=== PATIENT | female | born 1955 ===

== ENCOUNTER 2017-12-07 07:50 | Inpatient (IN) | payer BC ==
[2017-12-07 07:51] VITALS: BMI 24.2
[2017-12-07] MEDS ORDERED: Sodium Chloride 0.9% 1,000 ML IV ONE ×2 (08:16→11:07)
[2017-12-07] MEDS ORDERED: Albuterol-Ipratrop 3 mg / 0.5 (3 ml) UD IH STA (08:18)
[2017-12-07] MEDS ORDERED: Piperacill/Tazo 4.5gm in Dex 4.5 GM/100 ML BAG IVPB STA (08:34)
--- NOTE | 2017-12-07 08:34 | C.PDOC ---
History Of Present Illness 62 y/o female, with PMHx of asthma, and HTN, presents to ED for evaluation of cold symptoms including nasal congestion, productive cough, and clear sputum for the past week. Pt states she developed chest tightness and wheezing last night, notes she was not able to sleep last night. Denies high fever, headache, dizziness, chest pain, palpitation, shortness of breath, abdominal pain, or n/v/d. Pt also reports gradual development of right lower leg pain, redness, and swelling over the past 2 weeks. Denies fall, trauma, sensory vascular deficit, weakness, or numbness. Time Seen by Provider: 12/07/17 08:05 Chief Complaint (Nursing): Lower Extremity Problem/Injury History Per: Patient History/Exam Limitations: no limitations Onset/Duration Of Symptoms: Days Current Symptoms Are (Timing): Still Present Recent travel outside of the [place]: No Additional History Per: Patient Past Medical History Reviewed: Historical Data, Nursing Documentation, Vital Signs Vital Signs: Last Vital Signs Temp 98 F 12/07/17 07:59 Pulse 76 12/07/17 07:59 Resp 18 12/07/17 07:59 BP 119/80 12/07/17 07:59 Pulse Ox 92 L 12/07/17 07:59 - Medical History PMH: Asthma, Bronchitis (chronic), COPD, HTN, Pneumonia Denies: Chronic Kidney Disease Surgical History: Family History: States: Unknown Family Hx - Social History Hx Tobacco Use: No Hx Alcohol Use: No Hx Substance Use: No - Immunization History Hx Tetanus Toxoid Vaccination: No Hx Influenza Vaccination: No Hx Pneumococcal Vaccination: No Review Of Systems Except As Marked, All Systems Reviewed And Found Negative. Constitutional: Negative for: Fever, Chills ENT: Positive for: Nose Congestion. Negative for: Ear Pain, Throat Pain Cardiovascular: Positive for: Chest Pain (tightness). Negative for: Palpitations, Light Headedness Respiratory: Positive for: Cough, Sputum, Wheezing Gastrointestinal: Negative for: Nausea, Vomiting, Abdominal Pain Genitourinary: Negative for: Dysuria, Frequency Musculoskeletal: Positive for: Leg Pain (right lower leg). Negative for: Neck Pain, Back Pain Neurological: Negative for: Weakness, Numbness, Headache, Dizziness Physical Exam - Physical Exam Appears: Non-toxic, Other (occasiobal productive cough) Skin: Warm, Dry, No Rash, Other (erythema, mild edema and warmth to right distal fibular region with surround erythema, no fluctuance or proximal streaking) Head: Normacephalic Eye(s): bilateral: PERRL Ear(s): Bilateral: Normal Nose: No Flaring, No Discharge Oral Mucosa: Moist, No Drooling Tongue: Normal Appearing Lips: Normal Appearing Throat: No Erythema, No Exudate Neck: Trachea Midline, Supple Chest: Symmetrical Cardiovascular: Rhythm Regular, No Murmur, No JVD, Other ((-) carotid bruits B/L) Respiratory: Decreased Breath Sounds, Accessory Muscle Use (abd), No Rales, No Rhonchi, Wheezing (diffuse expiratory B/L) Gastrointestinal/Abdominal: Soft, No Tenderness, No Distention, No Guarding Back: No CVA Tenderness Extremity: Normal ROM, Tenderness (right distal fibula), Calf Tenderness (Right), Capillary Refill (less than 2 seconds), No Deformity, Swelling (mild swelling to right distal fibula extend to Right ankle) Pulses: Left Dorsalis Pedis: Normal, Right Dorsalis Pedis: Normal Neurological/Psych: Oriented x3, Normal Speech, Normal Motor, Normal Sensation, Normal Reflexes ED Course And Treatment - Laboratory Results Result Diagrams: 12/07/17 08:45 12/07/17 08:45 Lab Interpretation: No Changes Compared To Prior Results ECG: Interpreted By Me, Viewed By Me Interpretation Of ECG: SR@70/min, NAD, no acute ST-T changes. O2 Sat by Pulse Oximetry: 92 Pulse Ox Interpretation: Abnormal - Radiology CXR: Interpreted by Me, Viewed By Me CXR Interpretation: Yes: Other (perivsacular congestion B/L, ? pneumomediastinum) - CT Scan/US Doppler US RLE Other Rad Studies (CT/US): Radiology Report Reviewed CT/US Interpretation: (-) DVT prelim report Progress Note: Blood work, UA, CXR, EKG, influenza AB, Doppler right lower extremity ordered and reviewed. Pt was given Solu-Medrol, Zosyn, IV fluids, and nebulizer treatment. Pt was OBS in ED for 2 hours and reports mild improvement. PulsOEx 92-93%RA. ENT: no acute findings. neck: Supple, (-) JVD, (-) carotid bruits. Lungs: scattered expiratory bibasilar wheezing. Abd: benign. Neuorlogicaly intact. Blood work review and appears without acute abnormalities. EKG- no acute changes compare to previous study. CXR - abnormal, CT chest ordered. Case discussed with Hospitalist and amdisison arranged to tele with Dx: Asthma exacerbation, hypoxia, Right lower leg cellulitis. Critical Care Time - Critical Care Note Total Time (in mins): 45 Documented critical care: time excludes all time spent performing seperately billable procedures. Disposition - Disposition Disposition: HOSPITALIZED Disposition Time: 10:01 Condition: STABLE - Clinical Impression Clinical Impression: Asthma exacerbation, Cellulitis, Hypoxia - PA / [employer] / Resident Statement MD/DO has reviewed & agrees with the documentation as recorded. - Scribe Statement The provider has reviewed the documentation as recorded by the Scribe KP All medical record entries made by the Scribe were at my direction and personally dictated by me. I have reviewed the chart and agree that the record accurately reflects my personal performance of the history, physical exam, medical decision making, and the department course for this patient. I have also personally directed, reviewed, and agree with the discharge instructions and disposition.
[2017-12-07] MEDS ORDERED: Albuterol-Ipratrop 3 mg / 0.5 (3 ml) UD ONE ×3 (08:43→11:46)
[2017-12-07] MEDS ORDERED: Sodium Chloride 0.9% 1,000 ML ONE ×2 (08:48→12:54)
[2017-12-07 08:55] LABS: BASO # 0.1 K/uL (0.0-0.2); EOS # 1.1 K/uL (0.0-0.7); EOS % 15.5 % (0.0-4.0); HEMOGLOBIN 14.5 g/dL (11.0-16.0); LYMPH # 2.2 K/uL (1.0-4.3); LYMPH % 31.8 % (20.0-40.0); MEAN CELL VOLUME 88.1 fL (81.0-99.0); MEAN CORPUSCULAR HEMOGLOBIN 31.6 pg (27.0-31.0); MEAN CORPUSCULAR HGB CONC 35.8 g/dL (33.0-37.0); MEAN PLATELET VOLUME 7.8 fL (7.2-11.7); MONO # 0.7 K/uL (0.0-0.8); MONO % 9.9 % (0.0-10.0); NEUT # 2.8 K/uL (1.8-7.0); NEUT % 41.8 % (50.0-75.0); NRBC % 0.1 % (0.0-2.0); RBC 4.6 Mil/uL (3.80-5.20); RED CELL DISTRIBUTION WIDTH 12.6 % (11.5-14.5); WHITE BLOOD COUNT 6.8 K/uL (4.8-10.8)
[2017-12-07 08:56] LABS: ABG ALLEN TEST PO; ARTERIAL BLOOD GAS PCO2 34 mm/Hg (35-45); ARTERIAL BLOOD GAS PH 7.43 (7.35-7.45); ARTERIAL BLOOD GAS PO2 78 mm/Hg (80-100); ARTERIAL BLOOD GAS TCO2 23.6 mmol/L (22-28)
[2017-12-07 09:08] LABS: INR 1.2
[2017-12-07 09:10] LABS: ALB/GLOB RATIO 1.5 (1.0-2.1); ALBUMIN 3.9 g/dL (3.5-5.0); ALT/SGPT 43 U/L (9-52); AST/SGOT 31 U/L (14-36); BLOOD UREA NITROGEN 9 mg/dL (7-17); CALCIUM 9.3 mg/dl (8.6-10.4); GFR NON-AFRICAN AMERICAN > 60
[2017-12-07 09:54] LABS: SQUAMOUS EPITHIAL 1 /hpf (0-5); URINE BACTERIA RARE (<OCC); URINE BILIRUBIN NEGATIVE (NEGATIVE); URINE BLOOD 1+ (NEGATIVE); URINE CLARITY Clear (Clear); URINE COLOR Yellow (YELLOW); URINE GLUCOSE (UA) NORMAL (Normal); URINE LEUKOCYTE ESTERASE TRACE Leu/uL (Negative); URINE PROTEIN NEGATIVE (NEGATIVE); URINE UROBILINOGEN NORMAL mg/dL (0.2-1.0)
--- NOTE | 2017-12-07 11:40 | CT ---
Date of service: 12/07/2017 PROCEDURE: CT Chest without contrast HISTORY: SOB, hypoxia COMPARISON: Comparison made with CT chest 06/15/2014. TECHNIQUE: Contiguous axial images were obtained through the chest without intravenous contrast enhancement. Sagittal and coronal reconstructions were performed. Radiation dose (DLP): 308.1 mGy-cm. This CT exam was performed using one or more of the following dose reduction techniques: Automated exposure control, adjustment of the mA and/or kV according to patient size, and/or use of iterative reconstruction technique. FINDINGS: LUNGS: Mild bibasilar atelectasis of with questionable concomitant pleural thickening both lung bases.. There are minor linear scarring changes in the left and right lateral lung bases extending to the posterolateral pleural surfaces. Some minor linear atelectasis/scarring in the lingular and middle lobe regions as well. MEDIASTINUM: Heart is mildly enlarged. No significant pericardial effusion. Ascending thoracic aorta measures approximately 3.5 cm and descending thoracic aorta measures approximately 2.5 cm. Pulmonary trunk measures approximately 2.2 cm. There are a few small nonspecific mediastinal lymph nodes. Evaluation for hilar adenopathy is limited due to the lack of circulating intravenous contrast material. Central airways are midline and patent. No large central endoluminal lesions. Medium-sized hiatal hernia with wall thickening of the distal esophagus that may in part be due to protrusion of gastric mucosa however esophagitis or other intrinsic/invasive wall lesion including but not limited to esophageal carcinoma not excluded. Clinical correlation to determine whether followup endoscopy may be prudent. PLEURA: No pleural fluid. No pneumothorax. BONES: Mild multilevel degenerative spondylosis of the thoracic spine UPPER ABDOMEN: Note made of multiple colonic diverticula seen arising from the splenic flexure region. OTHER FINDINGS: None. IMPRESSION: Mild bibasilar atelectasis of with questionable concomitant pleural thickening both lung bases.. There are minor linear scarring changes in the left and right lateral lung bases extending to the posterolateral pleural surfaces. Some minor linear atelectasis/scarring in the lingular and middle lobe regions as well. Cardiomegaly. Small to medium size hiatal hernia with wall thickening of distal esophagus which in part is felt to be due to protrusion gastric mucosa however esophagitis or other intrinsic/invasive wall lesion not excluded. Endoscopy followup may be prudent for further evaluation.
[2017-12-07] MEDS ORDERED: Albuterol-Ipratrop 3 mg / 0.5 (3 ml) UD INH PRN (12:27)
[2017-12-07] MEDS: MethylPREDNISolone 40 mg Vial IVP SCH ×2 (12:36→20:53)
--- NOTE | 2017-12-07 14:22 | CP.PCM.HP ---
History of Present Illness - History of Present Illness History of Present Illness: CC: right leg pain and shortness of breath HPI: Patient is a 62 year old female with PMHx of asthma, HTN, and IGT who presents for worsening right leg pain which started 1 week. Patient said she does not know of any inciting events. Patient had no falls or trauma to the leg. Patient has not travelled recently. Patient also says her asthma has been poorly controlled for the past two weeks. She has been having rust colored sputum and increased cough and shortness of breath. Patient says she can only walk about 2 blocks. Patient denies any sick contacts. Patient denies fevers or chills. Patient normally sleeps on 2 pillows. Patient has never been intubated for asthma in the past. Patient denies any headache, chest pain, abdominal pain, nausea, vomiting, constipation, or diarrhea. PMD: Dr. Jordan Allergies: ASA, ibuprofen - anaphylaxis PMHx:asthma, HTN, and IGT Psurg: c section 30 years ago Social: denies alcohol, tobacco, drugs. lives alone. works in a factory. home meds: Losartan HCTZ 100-12.5 daily, Advair, Albuterol, Montelukast 10mg po daily, Claritin prn Present on Admission - Present on Admission Any Indicators Present on Admission: No History of DVT/PE: No History of Uncontrolled Diabetes: No Urinary Catheter: No Decubitus Ulcer Present: No Review of Systems - Constitutional Constitutional: absent: Chills, Fever, Headache - EENT Eyes: absent: Blurred Vision - Cardiovascular Cardiovascular: Dyspnea. absent: Chest Pain, Palpitations - Respiratory Respiratory: Cough, Dyspnea, Dyspnea on Exertion, Wheezing, Chest Congestion, Excessive Mucous Production, Change in Mucous Color - Gastrointestinal Gastrointestinal: absent: Abdominal Pain, Constipation, Diarrhea, Nausea, Vomiting - Genitourinary Genitourinary: absent: Difficulty Urinating, Dysuria - Musculoskeletal Musculoskeletal: absent: Numbness, Tingling - Integumentary Integumentary: Rash, Skin Pain Additional comments: right leg erythema - Neurological Neurological: absent: Confusion, Dizziness Past Patient History - Past Medical History & Family History Past Medical History?: Yes - Past Social History Smoking Status: Never Smoked - CARDIAC Hx Hypertension: Yes - PULMONARY Hx Asthma: Yes Hx Bronchitis: Yes (chronic) Hx Chronic Obstructive Pulmonary Disease (COPD): Yes Hx Pneumonia: Yes - NEUROLOGICAL Hx Neurological Disorder: No - HEENT Hx HEENT Problems: No - RENAL Hx Chronic Kidney Disease: No - ENDOCRINE/METABOLIC Hx Endocrine Disorders: No - HEMATOLOGICAL/ONCOLOGICAL Hx Blood Transfusions: No - INTEGUMENTARY Hx Dermatological Problems: No - MUSCULOSKELETAL/RHEUMATOLOGICAL Hx Falls: No - GASTROINTESTINAL Hx Gastrointestinal Disorders: No - GENITOURINARY/GYNECOLOGICAL Hx Genitourinary Disorders: No - PSYCHIATRIC Hx Substance Use: No - SURGICAL HISTORY Hx Section: Yes - ANESTHESIA Hx Anesthesia: Yes Hx Anesthesia Reactions: No Meds Allergies/Adverse Reactions: Allergies Allergy/AdvReac Type Severity Reaction Status Date / Time aspirin Allergy Verified 12/07/17 07:55 ibuprofen Allergy Verified 12/07/17 07:55 Physical Exam - Constitutional Appears: Non-toxic, No Acute Distress - Head Exam Head Exam: ATRAUMATIC, NORMAL INSPECTION, NORMOCEPHALIC - Eye Exam Eye Exam: EOMI, Normal appearance - ENT Exam ENT Exam: Mucous Membranes Moist - Respiratory Exam Respiratory Exam: Wheezes Additional comments: tachypnea - Cardiovascular Exam Cardiovascular Exam: Tachycardia, REGULAR RHYTHM, +S1, +S2 - GI/Abdominal Exam GI & Abdominal Exam: Normal Bowel Sounds, Soft. absent: Tenderness - Extremities Exam Extremities exam: Positive for: pedal edema, tenderness Additional comments: right lower extremity with erythema - Neurological Exam Neurological exam: Alert, Oriented x3 - Psychiatric Exam Psychiatric exam: Normal Affect, Normal Mood - Skin Skin Exam: Erythema, Rash, Warm Additional comments: right lower extremity edema and erythema Results - Vital Signs Recent Vital Signs: Last Vital Signs Temp 98.3 F 12/07/17 13:29 Pulse 109 H 12/07/17 13:29 Resp 16 12/07/17 13:29 BP 126/80 12/07/17 13:29 Pulse Ox 92 L 12/07/17 14:05 - Labs Result Diagrams: 12/07/17 08:45 12/07/17 08:45 Labs: Laboratory Results - last 24 hr 12/07/17 12/07/17 12/07/17 08:45 08:45 08:45 WBC 6.8 RBC 4.60 Hgb 14.5 Hct 40.6 MCV 88.1 D MCH 31.6 H MCHC 35.8 RDW 12.6 Plt Count 239 MPV 7.8 Neut % (Auto) 41.8 L Lymph % (Auto) 31.8 [place] % (Auto) 9.9 Eos % (Auto) 15.5 H Baso % (Auto) 1.0 Neut # (Auto) 2.8 Lymph # (Auto) 2.2 [place] # (Auto) 0.7 Eos # (Auto) 1.1 H Baso # (Auto) 0.1 PT 13.0 H INR 1.2 APTT 30 Puncture Site pCO2 pO2 HCO3 ABG pH ABG Total CO2 ABG O2 Saturation ABG Base Excess Rakesh Test ABG Potassium A-a O2 Difference Respiratory Index Glucose Lactate FiO2 Sodium 143 Potassium 3.9 Chloride 107 Carbon Dioxide 26 Anion Gap 14 BUN 9 Creatinine 0.6 L Est GFR ( Amer) > 60 Est GFR (Non-Af Amer) > 60 Random Glucose 112 H Calcium 9.3 Magnesium 2.0 Total Bilirubin 1.1 AST 31 ALT 43 Alkaline Phosphatase 80 Troponin I 0.0150 Total Protein 6.6 Albumin 3.9 Globulin 2.6 Albumin/Globulin Ratio 1.5 Arterial Blood Potassium Urine Color Urine Clarity Urine pH Ur Specific [place] Urine Protein Urine Glucose (UA) Urine Ketones Urine Blood Urine Nitrate Urine Bilirubin Urine Urobilinogen Ur Leukocyte Esterase Urine WBC (Auto) Urine RBC (Auto) Ur Squamous Epith Cells Urine Bacteria Influenza Typ A,B (EIA) 12/07/17 12/07/17 12/07/17 08:46 08:53 09:41 WBC RBC Hgb Hct MCV MCH MCHC RDW Plt Count MPV Neut % (Auto) Lymph % (Auto) [place] % (Auto) Eos % (Auto) Baso % (Auto) Neut # (Auto) Lymph # (Auto) [place] # (Auto) Eos # (Auto) Baso # (Auto) PT INR APTT Puncture Site Rra pCO2 34 L pO2 78 L HCO3 24.0 ABG pH 7.43 ABG Total CO2 23.6 ABG O2 Saturation 98.0 ABG Base Excess -1.1 Rakesh Test Po ABG Potassium 3.3 L A-a O2 Difference 29.0 Respiratory Index 0.4 Glucose 100 Lactate 1.2 FiO2 21.0 Sodium 142.0 Potassium Chloride 114.0 H Carbon Dioxide Anion Gap BUN Creatinine Est GFR ( Amer) Est GFR (Non-Af Amer) Random Glucose Calcium Magnesium Total Bilirubin AST ALT Alkaline Phosphatase Troponin I Total Protein Albumin Globulin Albumin/Globulin Ratio Arterial Blood Potassium 3.3 L Urine Color Yellow Urine Clarity Clear Urine pH 6.0 Ur Specific [place] 1.016 Urine Protein Negative Urine Glucose (UA) Normal Urine Ketones Negative Urine Blood 1+ H Urine Nitrate Negative Urine Bilirubin Negative Urine Urobilinogen Normal Ur Leukocyte Esterase Trace Urine WBC (Auto) 1 Urine RBC (Auto) 2 Ur Squamous Epith Cells 1 Urine Bacteria Rare Influenza Typ A,B (EIA) Negative for flu a/b Assessment & Plan - Assessment and Plan (Free Text) Assessment: RLE Pain and Erythema cellulitis vs DVT LE doppler- no DVT Clindamycin 300mg po TID Asthma Exacerbation CTA- no PE meds: Duonebs q4h harvey Duonebs q2h prn Singulair 10mg po HS Claritin 10mg po daily Breo Ellipta 100-25mcg q24h Solu-Medrol 40mg ivp q8h HTN HCTZ 12.5mg po daily Losartan 100mg po daily f/u TSH, free T4 IGT f/u HgA1C and Lipid Panel Hiatal Hernia incidental finding on CT chest -- small to medium sized hiatal hernia with wall thickening of distal esophagus which is part is felt to be due to protrusion gastric mucosa however esophagitis or other intrinsic/ invasive wall lesion not excluded. endoscopy follow up as an outpatient Prophylaxis DVT: Heparin 5000 u sc q8h GI: Pepcid 20mg po BID Discussed with Dr. Cruz
[2017-12-07] MEDS: Albuterol-Ipratrop 3 mg / 0.5 (3 ml) UD INH SCH ×3 (15:37→23:20)
--- NOTE | 2017-12-07 16:15 | RAD ---
Date of service: 12/07/2017 HISTORY: SOB COMPARISON: Comparison chest dated 08/03/2014. TECHNIQUE: Chest PA and lateral FINDINGS: LUNGS: Interstitial markings are slightly increased and coarsened with a few scattered peribronchial cuffing changes. Rule out sequela of reactive/inflammatory airway disease or viral illness. Mild bibasilar atelectasis and or scarring changes.. Note that there is some minimal hazy appearance both CP angles which could be due to large body habitus and underpenetration however some mild pleural thickening or tiny effusions cannot be completely excluded. PLEURA: No significant pleural effusion identified. No pneumothorax apparent. CARDIOVASCULAR: Heart appears mildly enlarged with slight ectatic uncoiled aorta OSSEOUS STRUCTURES: No significant abnormalities. VISUALIZED UPPER ABDOMEN: Normal. OTHER FINDINGS: None. IMPRESSION: Interstitial markings are slightly increased and coarsened with a few scattered peribronchial cuffing changes. Rule out sequela of reactive/inflammatory airway disease or viral illness. Mild bibasilar atelectasis and or scarring changes.. Note that there is some minimal hazy appearance both CP angles which could be due to large body habitus and underpenetration however some mild pleural thickening or tiny effusions cannot be completely excluded.
[2017-12-07] MEDS ORDERED: Iodixanol 320 MG/ML 100 ML BOTTLE IV ONE (16:19)
--- NOTE | 2017-12-07 17:37 | CT ---
Date of service: 12/07/2017 PROCEDURE: CT Chest with contrast (Pulmonary Angiogram) HISTORY: HYPOXIA. COMPARISON: None available.. TECHNIQUE: Axial computed tomography images were obtained of the chest in the pulmonary arterial phase of enhancement. Coronal and sagittal reformatted images were created and reviewed. Intravenous contrast dose: Radiation dose: Total exam DLP = 405.98 mGy-cm. This CT exam was performed using one or more of the following dose reduction techniques: Automated exposure control, adjustment of the mA and/or kV according to patient size, and/or use of iterative reconstruction technique. FINDINGS: PULMONARY ARTERIES: Note that the examination is somewhat limited due to suboptimal opacification of the pulmonary arteries and further limited by large body habitus. The visualized pulmonary trunk, right and left main, segmental and proximal subsegmental branches of the pulmonary arteries appear patent with no definitive filling defects seen to suggest acute pulmonary embolus. Pulmonary trunk measures approximately 2.5 cm.. AORTA: No acute findings. No thoracic aortic aneurysm. Ascending thoracic aorta measures approximately 3.5 cm and descending thoracic aorta measures approximately 2.2 cm. LUNGS: Mild bibasilar atelectasis, right greater than left. PLEURAL SPACES: Unremarkable. No effusion or pneumothorax. HEART: Heart size is borderline/mildly enlarged.. There is left ventricular hypertrophy. No significant pericardial effusion LYMPH NODES: Few [id number] nonspecific mediastinal lymph nodes are present, the largest in the precarinal region measuring approximately 14 mm.. There also appear to be few bilateral hilar lymph nodes largest on the right side measuring approximately 16 mm and on the left approximately 14 mm. Central airways midline and patent. No large central endoluminal lesions. There is a small hiatal hernia. BONES, CHEST WALL: Mild multilevel degenerative spondylosis of the thoracic spine. OTHER FINDINGS: The liver exhibits fatty infiltration. IMPRESSION: Suboptimal study demonstrating no evidence of large central pulmonary embolus. Mild cardiomegaly with LV Few small to medium-sized mediastinal and hilar lymph nodes as described.
[2017-12-08] MEDS: Albuterol-Ipratrop 3 mg / 0.5 (3 ml) UD INH SCH ×6 (04:13→23:25)
[2017-12-08] MEDS: MethylPREDNISolone 40 mg Vial IVP SCH ×3 (05:02→21:14)
[2017-12-08] MEDS ORDERED: Fluticasone-Vilanterol 100/25mcg Diskus INH SCH (08:00)
[2017-12-08] MEDS ORDERED: Pneumococcal 23-Valent Vaccine IM ONE (08:15)
[2017-12-08 08:19] LABS: BASO % 0.2 % (0.0-2.0); EOS % 0.1 % (0.0-4.0); HEMOGLOBIN 15.3 g/dL (11.0-16.0); LYMPH # 1.5 K/uL (1.0-4.3); LYMPH % 9.2 % (20.0-40.0); MEAN CELL VOLUME 89.2 fL (81.0-99.0); MEAN CORPUSCULAR HEMOGLOBIN 31.2 pg (27.0-31.0); MEAN PLATELET VOLUME 8.1 fL (7.2-11.7); MONO # 0.4 K/uL (0.0-0.8); MONO % 2.7 % (0.0-10.0); NEUT # 14.4 K/uL (1.8-7.0); NEUT % 87.8 % (50.0-75.0); PLATELET COUNT 263 K/uL (130-400); RED CELL DISTRIBUTION WIDTH 12.9 % (11.5-14.5)
[2017-12-08 08:26] LABS: WHITE BLOOD COUNT 16.4 K/uL (4.8-10.8)
[2017-12-08 08:39] LABS: ALB/GLOB RATIO 1.4 (1.0-2.1); ALBUMIN 4.2 g/dL (3.5-5.0); ALT/SGPT 38 U/L (9-52); AST/SGOT 28 U/L (14-36); BLOOD UREA NITROGEN 14 mg/dL (7-17); CALCIUM 9.2 mg/dl (8.6-10.4); GFR NON-AFRICAN AMERICAN > 60; HDL CHOLESTEROL 48 mg/dL (30-70)
[2017-12-08 08:53] LABS: LDL CHOLESTEROL 96 mg/dL (0-129)
[2017-12-08 09:56] LABS: BANDS 5 % (0-2); LYMPHOCYTE 9 % (20-40); MONOCYTE 2 % (0-10); NEUTROPHIL 84 % (50-75); TOTAL CELLS COUNTED 100
[2017-12-08 09:57] LABS: PLATELET ESTIMATE NORMAL (NORMAL)
[2017-12-08 16:09] VITALS: RESP 20
--- NOTE | 2017-12-08 18:47 | CP.PCM.PN ---
<Pam Mixon - Last Filed: 12/08/17 18:44> Subjective - Date & Time of Evaluation Date of Evaluation: 12/08/17 Time of Evaluation: 07:00 - Subjective Subjective: PGY2- Progress Note for Dr. Cruz Patient seen and examined at bedside and in no acute distress. Patient says she still has pain in her right leg and some shortness of breath. Patient denies any headache, chest pain, abdominal pain, nausea, vomiting, constipation, or diarrhea. Objective - Vital Signs/Intake and Output Vital Signs (last 24 hours): Temp Pulse Resp BP Pulse Ox 97.4 F L 105 H 20 103/62 100 12/08/17 15:08 12/08/17 17:25 12/08/17 15:08 12/08/17 15:08 12/08/17 15:08 Intake and Output: 12/08/17 12/08/17 06:59 18:59 Intake Total 440 300 Balance 440 300 - Medications Medications: Current Medications Albuterol/Ipratropium (Duoneb 3 Mg/0.5 Mg (3 Ml) Ud) 3 ml INH RQ4 [facility] Last Admin: 12/08/17 15:34 Dose: 3 ml Albuterol/Ipratropium (Duoneb 3 Mg/0.5 Mg (3 Ml) Ud) 3 ml INH RQ2 PRN PRN Reason: Shortness of Breath Clindamycin HCl (Cleocin) 300 mg PO TID [facility]; Protocol Last Admin: 12/08/17 18:35 Dose: 300 mg Famotidine (Pepcid) 20 mg PO BID [facility] Last Admin: 12/08/17 18:35 Dose: 20 mg Fluticasone/Vilanterol (Breo Ellipta 100-25 Mcg Inh) 1 puff INH RQ24 [facility] Last Admin: 12/08/17 08:03 Dose: Not Given Heparin Sodium (Porcine) (Heparin) 5,000 units SC Q8 [facility] Last Admin: 12/08/17 13:25 Dose: 5,000 units Hydrochlorothiazide (Microzide) 12.5 mg PO DAILY [facility] Last Admin: 12/08/17 09:51 Dose: 12.5 mg Influenza Virus Vaccine (Fluzone Quad [id number]) 60 mcg IM .ONCE ONE Stop: 12/09/17 10:01 Loratadine (Claritin) 10 mg PO DAILY [facility] Last Admin: 12/08/17 09:51 Dose: 10 mg Losartan Potassium (Cozaar) 100 mg PO DAILY [facility] Last Admin: 12/08/17 09:51 Dose: 100 mg Methylprednisolone (Solu-Medrol) 40 mg IVP Q8H [facility] Last Admin: 12/08/17 12:22 Dose: 40 mg Montelukast Sodium (Singulair) 10 mg PO [facility] Last Admin: 12/07/17 21:02 Dose: 10 mg - Labs Labs: 12/08/17 08:04 12/08/17 08:04 PT 13.0 SECONDS (9.7-12.2) H 12/07/17 08:45 INR 1.2 12/07/17 08:45 APTT 30 SECONDS (21-34) 12/07/17 08:45 - Additional Findings Additional findings: Appears: Non-toxic, No Acute Distress - Head Exam Head Exam: ATRAUMATIC, NORMAL INSPECTION, NORMOCEPHALIC - Eye Exam Eye Exam: EOMI, Normal appearance - ENT Exam ENT Exam: Mucous Membranes Moist - Respiratory Exam Respiratory Exam: Wheezes - Cardiovascular Exam Cardiovascular Exam: RRR, REGULAR RHYTHM, +S1, +S2 - GI/Abdominal Exam GI & Abdominal Exam: Normal Bowel Sounds, Soft. absent: Tenderness - Extremities Exam Extremities exam: Positive for: pedal edema, tenderness Additional comments: right lower extremity with erythema - Neurological Exam Neurological exam: Alert, Oriented x3 - Psychiatric Exam Psychiatric exam: Normal Affect, Normal Mood - Skin Skin Exam: Erythema, Rash, Warm Additional comments: right lower extremity edema and erythema Assessment and Plan - Assessment and Plan (Free Text) Assessment: RLE Pain and Erythema cellulitis vs DVT LE doppler- no DVT Clindamycin 300mg po TID Asthma Exacerbation CTA- no PE meds: Duonebs q4h harvey Duonebs q2h prn Singulair 10mg po HS Claritin 10mg po daily Breo Ellipta 100-25mcg q24h Solu-Medrol 40mg ivp q8h HTN HCTZ 12.5mg po daily Losartan 100mg po daily TSH: .24, free T4: .91 IGT HgA1C:5.9 Lipid Panel: WNL Hiatal Hernia incidental finding on CT chest -- small to medium sized hiatal hernia with wall thickening of distal esophagus which is part is felt to be due to protrusion gastric mucosa however esophagitis or other intrinsic/ invasive wall lesion not excluded. endoscopy follow up as an outpatient Prophylaxis DVT: Heparin 5000 u sc q8h GI: Pepcid 20mg po BID Discussed with Dr. Cruz <Petey Cruz - Last Filed: 12/10/17 16:08> Objective - Vital Signs/Intake and Output Vital Signs (last 24 hours): Temp Pulse Resp BP Pulse Ox 98.6 F 83 20 116/75 97 12/09/17 07:40 12/09/17 08:00 12/09/17 07:40 12/09/17 07:40 12/09/17 07:40 - Labs Labs: 12/09/17 07:19 12/09/17 07:19 PT 13.0 SECONDS (9.7-12.2) H 12/07/17 08:45 INR 1.2 12/07/17 08:45 APTT 30 SECONDS (21-34) 12/07/17 08:45 Attending/Attestation - Attestation I have personally seen and examined this patient.: Yes I have fully participated in the care of the patient.: Yes I have reviewed all pertinent clinical information, including history, physical exam and plan: Yes Notes (Text): Seen and examined,c/o leg pain,no fever,mild sob, patient has history of asthma and uses nebulizer treatment at home. She has bilateral wheezing on examination She came for leg cellulites we will continue solumedrol for her asthma. Leg swelling and tenderness present continue clindmycin Not ready for discharge today d/w resident
[2017-12-09] MEDS: Albuterol-Ipratrop 3 mg / 0.5 (3 ml) UD INH SCH ×2 (04:36→08:28)
[2017-12-09] MEDS: MethylPREDNISolone 40 mg Vial IVP SCH ×2 (05:16→13:17)
[2017-12-09 07:37] LABS: BASO % 0.1 % (0.0-2.0); HEMOGLOBIN 14.1 g/dL (11.0-16.0); LYMPH # 1.1 K/uL (1.0-4.3); LYMPH % 6.6 % (20.0-40.0); MEAN CELL VOLUME 89.1 fL (81.0-99.0); MEAN CORPUSCULAR HEMOGLOBIN 30.9 pg (27.0-31.0); MEAN CORPUSCULAR HGB CONC 34.7 g/dL (33.0-37.0); MEAN PLATELET VOLUME 8.1 fL (7.2-11.7); MONO # 0.7 K/uL (0.0-0.8); MONO % 4.4 % (0.0-10.0); NEUT # 14.7 K/uL (1.8-7.0); NEUT % 88.9 % (50.0-75.0); PLATELET COUNT 255 K/uL (130-400); RBC 4.56 Mil/uL (3.80-5.20); RED CELL DISTRIBUTION WIDTH 13.1 % (11.5-14.5); WHITE BLOOD COUNT 16.5 K/uL (4.8-10.8)
[2017-12-09 07:59] LABS: ALB/GLOB RATIO 1.5 (1.0-2.1); ALBUMIN 3.9 g/dL (3.5-5.0); ALT/SGPT 35 U/L (9-52); AST/SGOT 20 U/L (14-36); BLOOD UREA NITROGEN 17 mg/dL (7-17); CALCIUM 9.2 mg/dl (8.6-10.4); GFR NON-AFRICAN AMERICAN > 60
[2017-12-09 08:50] VITALS: PULSE 83
[2017-12-09 08:52] VITALS: BP 116/75; TEMP 98.6; O2SAT 97
[2017-12-09 09:44] LABS: MONOCYTE 3 % (0-10); PLATELET ESTIMATE NORMAL (NORMAL); TOTAL CELLS COUNTED 100
[2017-12-09 09:45] LABS: LYMPHOCYTE 5 % (20-40); NEUTROPHIL 92 % (50-75)
[2017-12-09] MEDS ORDERED: Pneumococcal 23-Valent Vaccine IM ONE (10:00)
[2017-12-09] MEDS ORDERED: Influenza Vaccine 60 MCG/0.5 ML SYR (3 yr & up) IM ONE (10:00)
--- NOTE | 2017-12-09 11:58 | VASCLAB ---
Date of service: 12/07/2017 PROCEDURE: Right Lower Extremity Venous Duplex Exam. HISTORY: pain, redness, swelling PRIORS: None. TECHNIQUE: Right common femoral, femoral, popliteal and posterior tibial, peroneal and great saphenous veins were evaluated. Flow was assessed with color Doppler, compressibility, assessment of phasic flow and augmentation response. Report prepared by ETJA Skinner FINDINGS: RIGHT: 1. Common Femoral Vein: 1.1. Compressibility - Fully compressible: Thrombus - None: Flow - Phasic: Augmentation -Normal: Reflux - None. 2. Femoral Vein: 2.1. Compressibility - Fully compressible: Thrombus - None: Flow - Phasic: Augmentation -Normal: Reflux - None. 3. Popliteal Vein: 3.1. Compressibility - Fully compressible: Thrombus - None: Flow - Phasic: Augmentation -Normal: Reflux - None. 4. Posterior Tibial Vein: 4.1. Compressibility - Fully compressible: Thrombus - None: Flow - Phasic: Augmentation -Normal: Reflux - None. 5. Peroneal Vein: 5.1. Compressibility - Fully compressible: Thrombus - None: Flow - Phasic: Augmentation -Normal: Reflux - None. 6. Great Saphenous Vein: 6.1. Compressibility - Fully compressible: Thrombus -None: Flow - Phasic: Augmentation - Normal: Reflux - None. OTHER FINDINGS: IMPRESSION: No evidence of deep or superficial vein thrombosis of the right lower extremity with excellent venous flow. Normal valve function noted of the right side. Normal venous flow noted in the left common femoral vein.
--- NOTE | 2017-12-09 12:44 | CP.PCM.DIS ---
<Moshe Singh - Last Filed: 12/09/17 13:50> Provider - Provider Date of Admission: 12/07/17 10:05 Attending physician: Jose Rios DO Primary care physician: Dr. Zo Casey Time Spent in preparation of Discharge (in minutes): 45 Diagnosis - Discharge Diagnosis (1) Asthma exacerbation Status: Acute (2) Cellulitis Status: Acute (3) HTN (hypertension) Status: Chronic (4) Impaired glucose tolerance Status: Chronic Hospital Course - Lab Results Lab Results: Micro Results 12/07/17 09:43 Blood Blood Culture - Preliminary NO GROWTH AFTER 48 HOURS 12/07/17 09:43 Blood Blood Culture - Preliminary NO GROWTH AFTER 48 HOURS 12/07/17 09:41 Urine,Clean Catch Urine Culture - Final <10,000 CFU/ML. MULTIPLE SPECIES. PROBABLE CONTAMINATION. Most Recent Lab Values WBC 16.5 K/uL (4.8-10.8) H 12/09/17 07:19 RBC 4.56 Mil/uL (3.80-5.20) 12/09/17 07:19 Hgb 14.1 g/dL (11.0-16.0) 12/09/17 07:19 Hct 40.6 % (34.0-47.0) 12/09/17 07:19 MCV 89.1 fL (81.0-99.0) 12/09/17 07:19 MCH 30.9 pg (27.0-31.0) 12/09/17 07:19 MCHC 34.7 g/dL (33.0-37.0) 12/09/17 07:19 RDW 13.1 % (11.5-14.5) 12/09/17 07:19 Plt Count 255 K/uL (130-400) 12/09/17 07:19 MPV 8.1 fL (7.2-11.7) 12/09/17 07:19 Neut % (Auto) 88.9 % (50.0-75.0) H 12/09/17 07:19 Lymph % (Auto) 6.6 % (20.0-40.0) L 12/09/17 07:19 [place] % (Auto) 4.4 % (0.0-10.0) 12/09/17 07:19 Eos % (Auto) 0.0 % (0.0-4.0) 12/09/17 07:19 Baso % (Auto) 0.1 % (0.0-2.0) 12/09/17 07:19 Neut # (Auto) 14.7 K/uL (1.8-7.0) H 12/09/17 07:19 Lymph # (Auto) 1.1 K/uL (1.0-4.3) 12/09/17 07:19 [place] # (Auto) 0.7 K/uL (0.0-0.8) 12/09/17 07:19 Eos # (Auto) 0.0 K/uL (0.0-0.7) 12/09/17 07: Baso # (Auto) 0.0 K/uL (0.0-0.2) 12/09/17 07:19 Neutrophils % (Manual) 92 % (50-75) H 12/09/17 07:19 Band Neutrophils % 5 % (0-2) H 12/08/17 08:04 Lymphocytes % (Manual) 5 % (20-40) L 12/09/17 07:19 Monocytes % (Manual) 3 % (0-10) 12/09/17 07:19 Platelet Estimate Normal (NORMAL) 12/09/17 07:19 RBC Morphology Normal 12/08/17 08:04 PT 13.0 SECONDS (9.7-12.2) H 12/07/17 08:45 INR 1.2 12/07/17 08:45 APTT 30 SECONDS (21-34) 12/07/17 08:45 Puncture Site Rra 12/07/17 08:53 pCO2 34 mm/Hg (35-45) L 12/07/17 08:53 pO2 78 mm/Hg (80-100) L 12/07/17 08:53 HCO3 24.0 mmol/L (21-28) 12/07/17 08:53 ABG pH 7.43 (7.35-7.45) 12/07/17 08:53 ABG Total CO2 23.6 mmol/L (22-28) 12/07/17 08:53 ABG O2 Saturation 98.0 % (95-98) 12/07/17 08:53 ABG Base Excess -1.1 mmol/L (-2.0-3.0) 12/07/17 08:53 Rakesh Test Po 12/07/17 08:53 ABG Potassium 3.3 mmol/L (3.6-5.2) L 12/07/17 08:53 A-a O2 Difference 29.0 mm/Hg 12/07/17 08:53 Respiratory Index 0.4 12/07/17 08:53 Sodium 142.0 mmol/l (132-148) 12/07/17 08:53 Chloride 114.0 mmol/L (98-107) H 12/07/17 08:53 Glucose 100 mg/dl (65-105) 12/07/17 08:53 Lactate 1.2 mmol/L (0.7-2.1) 12/07/17 08:53 FiO2 21.0 % 12/07/17 08:53 Sodium 140 mmol/L (132-148) 12/09/17 07:19 Potassium 4.4 mmol/L (3.6-5.2) 12/09/17 07:19 Chloride 107 mmol/L (98-107) 12/09/17 07:19 Carbon Dioxide 20 mmol/L (22-30) L 12/09/17 07:19 Anion Gap 18 (10-20) 12/09/17 07:19 BUN 17 mg/dL (7-17) 12/09/17 07:19 Creatinine 0.6 mg/dL (0.7-1.2) L 12/09/17 07:19 Est GFR ( Amer) > 60 12/09/17 07:19 Est GFR (Non-Af Amer) > 60 12/09/17 07:19 Random Glucose 171 mg/dL (65-105) H 12/09/17 07:19 Hemoglobin A1c 5.9 % (4.2-6.5) 12/08/17 08:04 Calcium 9.2 mg/dl (8.6-10.4) 12/09/17 07:19 Phosphorus 2.9 mg/dL (2.5-4.5) 12/09/17 07:19 Magnesium 2.2 mg/dL (1.6-2.3) 12/09/17 07:19 Total Bilirubin 0.6 mg/dL (0.2-1.3) 12/09/17 07:19 AST 20 U/L (14-36) 12/09/17 07:19 ALT 35 U/L (9-52) 12/09/17 07:19 Alkaline Phosphatase 80 U/L (38-126) 12/09/17 07:19 Troponin I 0.0150 ng/mL (0.00-0.120) 12/07/17 08:45 Total Protein 6.5 g/dL (6.3-8.3) 12/09/17 07:19 Albumin 3.9 g/dL (3.5-5.0) 12/09/17 07:19 Globulin 2.6 gm/dL (2.2-3.9) 12/09/17 07:19 Albumin/Globulin Ratio 1.5 (1.0-2.1) 12/09/17 07:19 Triglycerides 73 mg/dL (0-149) D 12/08/17 08:04 Cholesterol 170 mg/dL (0-199) 12/08/17 08:04 LDL Cholesterol Direct 96 mg/dL (0-129) 12/08/17 08:04 HDL Cholesterol 48 mg/dL (30-70) 12/08/17 08:04 Free T4 0.91 ng/dL (0.78-2.19) 12/08/17 08:04 TSH 3rd Generation 0.24 mIU/L (0.46-4.68) L 12/08/17 08:04 Arterial Blood Potassium 3.3 mmol/L (3.6-5.2) L 12/07/17 08:53 Urine Color Yellow (YELLOW) 12/07/17 09:41 Urine Clarity Clear (Clear) 12/07/17 09:41 Urine pH 6.0 (5.0-8.0) 12/07/17 09:41 Ur Specific [place] 1.016 (1.003-1.030) 12/07/17 09:41 Urine Protein Negative mg/dL (NEGATIVE) 12/07/17 09:41 Urine Glucose (UA) Normal mg/dL (Normal) 12/07/17 09:41 Urine Ketones Negative mg/dL (NEGATIVE) 12/07/17 09:41 Urine Blood 1+ (NEGATIVE) H 12/07/17 09:41 Urine Nitrate Negative (NEGATIVE) 12/07/17 09:41 Urine Bilirubin Negative (NEGATIVE) 09/29/18 09:41 Urine Urobilinogen Normal mg/dL (0.2-1.0) 12/07/17 09:41 Ur Leukocyte Esterase Trace Iain/uL (Negative) 12/07/17 09:41 Urine WBC (Auto) 1 /hpf (0-5) 12/07/17 09:41 Urine RBC (Auto) 2 /hpf (0-3) 12/07/17 09:41 Ur Squamous Epith Cells 1 /hpf (0-5) 12/07/17 09:41 Urine Bacteria Rare (<OCC) 12/07/17 09:41 Influenza Typ A,B (EIA) Negative for flu a/b (NEGATIVE) 12/07/17 08:46 - Hospital Course Hospital Course: Medicine Discharge Summary for Hospitalist Service This is a 62 year old female with PMHx of asthma, HTN, and impaired glucose tolerance who presented on 12/07/17 for worsening right leg pain which started 1 week prior. Patient stated that she did not know of any inciting events prior to symptom onset. Patient had no falls or trauma to the leg. Patient denied recent travel. Patient also stated her asthma had been poorly controlled for the past two weeks. Admitted to rust colored sputum and increased cough and shortness of breath. Patient stated she can only walk about 2 blocks on day of admission until getting short of breath. Patient denied any sick contacts. Patient denies fevers or chills. Patient reported normally sleeping on 2 pillows. Denied being intubated for asthma in the past. Denied any headache, chest pain, abdominal pain, nausea, vomiting, constipation, or diarrhea. Pt was admitted for R lower extremity cellulitis. LE dopplers demonstrated no evidence of DVT bilaterally. Pt was started on Clindamycin 300 mg PO tid, to complete therapy for total of 4 days on discharge. Pt's LE swelling and pain improved during admission. Pt had leukocytosis likely 2/2 to steroid administration for asthma exacerbation. Pt was also admitted for treatment of asthma exacerbation. CT Angio demonstrated no clinical signs of PE. Incidental finding on CT chest - small to medium sized hiatal hernia with wall thickening of distal esophagus, which in part is felt to be due to protrusion of gastric mucose however esophagitis or other intrinsic/invasive wall lesion not excluded. Pt instructed to follow with her PCP (Dr. Casey) within 1 week of hospital discharge and schedule endoscopy as outpatient with glue bone crusher. Pt was treated with duonebs, IV steroids, Singulair, Claritin, and Breo-Ellipta. Pt was sent home on Prednisone therapy with instructions to complete taper. Pt medically stable for discharge to home, was given note for work for absence secondary to hospital admission. All questions and concerns were addressed with patient, and she is compliant with follow-up. Discharge Exam - Head Exam Head Exam: ATRAUMATIC, NORMAL INSPECTION, NORMOCEPHALIC - Eye Exam Eye Exam: EOMI, Normal appearance, PERRL - ENT Exam ENT Exam: Mucous Membranes Moist - Respiratory Exam Respiratory Exam: NORMAL BREATHING PATTERN Additional comments: Improved diffuse wheezing in all lung stevens - Cardiovascular Exam Cardiovascular Exam: REGULAR RHYTHM, +S1, +S2 - GI/Abdominal Exam GI & Abdominal Exam: Normal Bowel Sounds, Soft, Unremarkable. absent: Distended, Firm, Guarding, Organomegaly, Rebound, Rigid, Tenderness - Extremities Exam Extremities exam: full ROM, normal capillary refill, normal inspection, pedal pulses present - Neurological Exam Neurological exam: Alert, CN II-XII Intact, Normal Gait, Oriented x3, Reflexes Normal - Psychiatric Exam Psychiatric exam: Normal Affect, Normal Mood - Skin Skin Exam: Dry, Intact, Normal Color, Warm Discharge Plan - Discharge Medications Prescriptions: RX: Clindamycin [Cleocin] 300 mg PO QID #20 cap Lactobacillus 3/Fos/Pantethine [Probiotic & Acidophilus 250 mg-1000 Mcg] 1 cap PO DAILY #7 cap predniSONE [predniSONE Tab] 40 mg PO DAILY #5 tab - Follow Up Plan Condition: STABLE Disposition: HOME/ ROUTINE Instructions: Heart Healthy Diet, Clindamycin (Systemic), Asthma, Adult (DC), Cellulitis (Skin Infection), Adult (DC), Lactobacillus, Prednisone Additional Instructions: Patient stable for discharge as per Dr. Rios. Patient to follow up with Dr. Jordan within one week. Patient to take probiotics daily, Clindamycin 300mg 4 times per day for 5 days, and prednisone 40mg daily for 5 days. Patient to continue home meds. Patient explained instructions who understands and agrees. Referrals: Zo Casey MD [Medical Doctor] - <Jose Rios - Last Filed: 12/09/17 18:10> Provider - Provider Date of Admission: 12/07/17 10:05 Attending physician: Jose Rios, DO Hospital Course - Lab Results Lab Results: Micro Results 12/07/17 09:43 Blood Blood Culture - Preliminary NO GROWTH AFTER 48 HOURS 12/07/17 09:43 Blood Blood Culture - Preliminary NO GROWTH AFTER 48 HOURS 12/07/17 09:41 Urine,Clean Catch Urine Culture - Final <10,000 CFU/ML. MULTIPLE SPECIES. PROBABLE CONTAMINATION. Most Recent Lab Values WBC 16.5 K/uL (4.8-10.8) H 12/09/17 07:19 RBC 4.56 Mil/uL (3.80-5.20) 12/09/17 07:19 Hgb 14.1 g/dL (11.0-16.0) 12/09/17 07:19 Hct 40.6 % (34.0-47.0) 12/09/17 07:19 MCV 89.1 fL (81.0-99.0) 12/09/17 07:19 MCH 30.9 pg (27.0-31.0) 12/09/17 07:19 MCHC 34.7 g/dL (33.0-37.0) 12/09/17 07:19 RDW 13.1 % (11.5-14.5) 12/09/17 07:19 Plt Count 255 K/uL (130-400) 12/09/17 07:19 MPV 8.1 fL (7.2-11.7) 12/09/17 07:19 Neut % (Auto) 88.9 % (50.0-75.0) H 12/09/17 07:19 Lymph % (Auto) 6.6 % (20.0-40.0) L 12/09/17 07:19 [place] % (Auto) 4.4 % (0.0-10.0) 12/09/17 07:19 Eos % (Auto) 0.0 % (0.0-4.0) 12/09/17 07:19 Baso % (Auto) 0.1 % (0.0-2.0) 12/09/17 07:19 Neut # (Auto) 14.7 K/uL (1.8-7.0) H 12/09/17 07:19 Lymph # (Auto) 1.1 K/uL (1.0-4.3) 12/09/17 07:19 [place] # (Auto) 0.7 K/uL (0.0-0.8) 12/09/17 07:19 Eos # (Auto) 0.0 K/uL (0.0-0.7) 12/09/17 07:19 Baso # (Auto) 0.0 K/uL (0.0-0.2) 12/09/17 07:19 Neutrophils % (Manual) 92 % (50-75) H 12/09/17 07:19 Band Neutrophils % 5 % (0-2) H 12/08/17 08:04 Lymphocytes % (Manual) 5 % (20-40) L 12/09/17 07:19 Monocytes % (Manual) 3 % (0-10) 12/09/17 07:19 Platelet Estimate Normal (NORMAL) 12/09/17 07:19 RBC Morphology Normal 12/08/17 08:04 PT 13.0 SECONDS (9.7-12.2) H 12/07/17 08:45 INR 1.2 12/07/17 08:45 APTT 30 SECONDS (21-34) 12/07/17 08:45 Puncture Site Rra 12/07/17 08:53 pCO2 34 mm/Hg (35-45) L 12/07/17 08:53 pO2 78 mm/Hg (80-100) L 12/07/17 08:53 HCO3 24.0 mmol/L (21-28) 12/07/17 08:53 ABG pH 7.43 (7.35-7.45) 12/07/17 08:53 ABG Total CO2 23.6 mmol/L (22-28) 12/07/17 08:53 ABG O2 Saturation 98.0 % (95-98) 12/07/17 08:53 ABG Base Excess -1.1 mmol/L (-2.0-3.0) 12/07/17 08:53 Rakesh Test Po 12/07/17 08:53 ABG Potassium 3.3 mmol/L (3.6-5.2) L 12/07/17 08:53 A-a O2 Difference 29.0 mm/Hg 12/07/17 08:53 Respiratory Index 0.4 12/07/17 08:53 Sodium 142.0 mmol/l (132-148) 12/07/17 08:53 Chloride 114.0 mmol/L (98-107) H 12/07/17 08:53 Glucose 100 mg/dl (65-105) 12/07/17 08:53 Lactate 1.2 mmol/L (0.7-2.1) 12/07/17 08:53 FiO2 21.0 % 12/07/17 08:53 Sodium 140 mmol/L (132-148) 12/09/17 07:19 Potassium 4.4 mmol/L (3.6-5.2) 12/09/17 07:19 Chloride 107 mmol/L (98-107) 12/09/17 07:19 Carbon Dioxide 20 mmol/L (22-30) L 12/09/17 07:19 Anion Gap 18 (10-20) 12/09/17 07:19 BUN 17 mg/dL (7-17) 12/09/17 07:19 Creatinine 0.6 mg/dL (0.7-1.2) L 12/09/17 07:19 Est GFR ( Amer) > 60 12/09/17 07:19 Est GFR (Non-Af Amer) > 60 12/09/17 07:19 Random Glucose 171 mg/dL (65-105) H 12/09/17 07:19 Hemoglobin A1c 5.9 % (4.2-6.5) 12/08/17 08:04 Calcium 9.2 mg/dl (8.6-10.4) 12/09/17 07:19 Phosphorus 2.9 mg/dL (2.5-4.5) 12/09/17 07:19 Magnesium 2.2 mg/dL (1.6-2.3) 12/09/17 07:19 Total Bilirubin 0.6 mg/dL (0.2-1.3) 12/09/17 07:19 AST 20 U/L (14-36) 12/09/17 07:19 ALT 35 U/L (9-52) 12/09/17 07:19 Alkaline Phosphatase 80 U/L (38-126) 12/09/17 07:19 Troponin I 0.0150 ng/mL (0.00-0.120) 12/07/17 08:45 Total Protein 6.5 g/dL (6.3-8.3) 12/09/17 07:19 Albumin 3.9 g/dL (3.5-5.0) 12/09/17 07:19 Globulin 2.6 gm/dL (2.2-3.9) 12/09/17 07:19 Albumin/Globulin Ratio 1.5 (1.0-2.1) 12/09/17 07:19 Triglycerides 73 mg/dL (0-149) D 12/08/17 08:04 Cholesterol 170 mg/dL (0-199) 12/08/17 08:04 LDL Cholesterol Direct 96 mg/dL (0-129) 12/08/17 08:04 HDL Cholesterol 48 mg/dL (30-70) 12/08/17 08:04 Free T4 0.91 ng/dL (0.78-2.19) 12/08/17 08:04 TSH 3rd Generation 0.24 mIU/L (0.46-4.68) L 12/08/17 08:04 Arterial Blood Potassium 3.3 mmol/L (3.6-5.2) L 12/07/17 08:53 Urine Color Yellow (YELLOW) 12/07/17 09:41 Urine Clarity Clear (Clear) 12/07/17 09:41 Urine pH 6.0 (5.0-8.0) 12/07/17 09:41 Ur Specific [place] 1.016 (1.003-1.030) 12/07/17 09:41 Urine Protein Negative mg/dL (NEGATIVE) 12/07/17 09:41 Urine Glucose (UA) Normal mg/dL (Normal) 12/07/17 09:41 Urine Ketones Negative mg/dL (NEGATIVE) 12/07/17 09:41 Urine Blood 1+ (NEGATIVE) H 12/07/17 09:41 Urine Nitrate Negative (NEGATIVE) 12/07/17 09:41 Urine Bilirubin Negative (NEGATIVE) 12/07/17 09:41 Urine Urobilinogen Normal mg/dL (0.2-1.0) 12/07/17 09:41 Ur Leukocyte Esterase Trace Iain/uL (Negative) 12/07/17 09:41 Urine WBC (Auto) 1 /hpf (0-5) 12/07/17 09:41 Urine RBC (Auto) 2 /hpf (0-3) 12/07/17 09:41 Ur Squamous Epith Cells 1 /hpf (0-5) 12/07/17 09:41 Urine Bacteria Rare (<OCC) 12/07/17 09:41 Influenza Typ A,B (EIA) Negative for flu a/b (NEGATIVE) 12/07/17 08:46 Attending/Attestation - Attestation I have personally seen and examined this patient.: Yes I have fully participated in the care of the patient.: Yes I have reviewed all pertinent clinical information, including history, physical exam and plan: Yes Notes (Text): 12/09/17 18:10 Medical attending: Patient was seen and examined by me, reviewed the above note by the medical assistant the above The patient was discharged today. I had her stand up and walk with us she was able to ambulate out of the room into the hallway if the hospital without becoming short of breath or tachycardic on the pvc monitor. She still had very minor wheezing bilaterally. She should continue to take he had tapering prednisone dose. Furthermore she's can be on several more days of by mouth antibiotics as well for the lower extremity cellulitis. Thank you very much, Jose Rios
--- NOTE | 2017-12-09 22:46 | CARD ---
APPROVED REPORT Date of service: 12/07/2017 EKG Measurement Heart [id number] MD [id number] <Conclusion> Normal sinus rhythm Nonspecific T wave abnormality Abnormal ECG
== END 2017-12-09 13:41 | disposition home or self-care (01) | DRG 202 ==
LOC: C.ER 07:50 → C.9E 10:05 → C.6T 13:19
PROVIDERS: ADMIT Hospitalist; ATTEND Hospitalist
DX: J45.901 Unspecified asthma with (acute) exacerbation (principal); L03.115 Cellulitis of right lower limb; J44.9 Chronic obstructive pulmonary disease, unspecified; I10 Essential (primary) hypertension; R09.02 Hypoxemia; K44.9 Diaphragmatic hernia without obstruction or gangrene; Z87.01 Personal history of pneumonia (recurrent)